=== PATIENT | male | born 1965 | race Caucasian/White ===

== ENCOUNTER 2016-09-13 05:41 | Emergency (ER) | payer SELFPAY ==
[~2016-09-13] VITALS: Ht 180.3 cm; Wt 95.6 kg
[2016-09-13 06:51] LABS: HEMATOCRIT 44.4 % (38.0-50.0); MCH 27.8 PG (29.0-34.0); MCHC 34.7 G/DL (30.0-36.0); MCV 80.1 FL (86-99); MEAN PLAT.VOLUME 9.9 uM^3 (9.0-12.4); PLATELET COUNT 199 K/uL (156-360); RBC DIS.WIDTH-CV 12.8 % (11.8-14.6); RBC DIS.WIDTH-SD 36.5 % (39-53); RED BLOOD COUNT 5.54 M/uL (4.00-5.50); WHITE BLOOD COUNT 6.4 K/uL (4.1-10.2)
[2016-09-13 06:59] LABS: CHLORIDE 107 mEq/L (99-109); SODIUM 141 mEq/L (136-147)
[2016-09-13 07:00] LABS: GLUCOSE 119 mg/dL (70-99)
[2016-09-13 07:02] LABS: ANION GAP 9 MEQ/L (2-14)
[2016-09-13 07:04] LABS: GFR ESTIMATE (CALCULATED) > 59 mL/min/
[2016-09-13 07:05] LABS: UREA NITROGEN (BUN) 21 mg/dL (9-23)
[2016-09-13 07:11] LABS: TROP-I INTERPRETATION NEGATIVE; TROPONIN-I < 0.01 ng/mL (0.0-0.30)
[2016-09-13 07:23] LABS: D-DIMER ELISA < 0.15 mg/L FEU (< 0.57)
[2016-09-13 10:32] LABS: TROP-I INTERPRETATION NEGATIVE; TROPONIN-I < 0.01 ng/mL (0.0-0.30)
[2016-09-13 11:08] VITALS: BP 166/100
== END 2016-09-13 11:22 | disposition home or self-care (01) ==
LOC: EME 05:41
PROVIDERS: Emergency Medicine
DX: R07.89 Other chest pain (principal); M79.602 Pain in left arm
CPT/HCPCS: 71020; 80048; 84484; 85027; 85379; 93005; 99281; 99284